=== PATIENT | female | born 1975 | race Two or more races ===

== ENCOUNTER 2019-10-24 22:15 | Emergency (ER) | payer BC ==
[2019-10-24] MEDS ORDERED: NORMAL SALINE 1000 ML 1,000 ML IV ONE (23:05)
[2019-10-24] MEDS ORDERED: ONDANSETRON HCL INJ/PF 4 MG/2 ML SDV IV ONE (23:05)
[2019-10-24] MEDS ORDERED: KETOROLAC TROMETHAMINE INJ/PF 30 MG/1 ML SDV IV ONE (23:05)
--- NOTE | 2019-10-24 23:08 | ER Document Report ---
ED Medical Screen (RME) - General Chief Complaint: Flu Symptoms Stated Complaint: FLU SYMPTOMS Time Seen by Provider: 10/24/19 23:01 Notes: Patient is a 44-year-old female presents emergency department with a chief complaint of body aches. Patient was seen by the primary care physician earlier today and although they did not test for the flu she was given Tamiflu. Patient reports her son had the flu 2 days ago and today she developed cough, body aches, nausea and generalized weakness. Denies vomiting or diarrhea. Patient did take a dose of Tylenol around 9 PM. Past Medical History - Social History Frequency of alcohol use: None Drug Abuse: None Physical Exam - Vital signs Vitals: Temp Pulse Resp BP Pulse Ox 96 F L 132 H 18 138/83 H 96 10/24/19 22:24 10/24/19 22:24 10/24/19 22:24 10/24/19 22:24 10/24/19 22:24 - Respiratory Respiratory status: No respiratory distress Chest status: Nontender Breath sounds: Normal Chest palpation: Normal Course - Re-evaluation Re-evalutation: 10/24/19 23:07 Patient febrile and tachycardic in triage. There is no hypotension. Will obtain basic labs and initiate IV fluids. Will give Toradol for her body aches and Zofran for her nausea. I have greeted and performed a rapid initial assessment of this patient. A comprehensive ED assessment and evaluation of the patient, analysis of test results and completion of the medical decision making process will be conducted by additional ED providers. - Vital Signs Vital signs: Temp Pulse Resp BP Pulse Ox 96 F L 132 H 18 138/83 H 96 10/24/19 22:24 10/24/19 22:24 10/24/19 22:24 10/24/19 22:24 10/24/19 22:24
[2019-10-25 00:53] LABS: A TYPE INFLUENZA AG NEGATIVE (NEGATIVE); B INFLUENZA AG NEGATIVE (NEGATIVE)
--- NOTE | 2019-10-25 01:43 | RADIOLOGY REPORT (SQ) ---
EXAM DESCRIPTION: XR CHEST 2 VIEWS COMPLETED DATE/TME: 10/24/2019 23:06 CLINICAL HISTORY: 44 years, Female, fever, cough COMPARISON: None. NUMBER OF VIEWS: 2 TECHNIQUE: LIMITATIONS: None. FINDINGS: Interstitial prominence. No focal airspace disease. Cardiac mediastinal silhouette is of normal size IMPRESSION: Surgical prominence. Hyperinflation. No focal airspace disease copyright 2011 [employer]- All Rights Reserved
[2019-10-25 02:39] LABS: ALBUMIN 4.1 g/dL (3.5-5.0); ALKALINE PHOSPHATASE 98 U/L (38-126); ANION GAP 9 (5-19); ASPARTATE AMINO TRANSFERASE 111 U/L (14-36); BILIRUBIN,TOTAL 0.4 mg/dL (0.2-1.3); BLOOD UREA NITROGEN 7 mg/dL (7-20); CALCIUM 8.5 mg/dL (8.4-10.2); CARBON DIOXIDE 20 mmol/L (22-30); CHLORIDE 108 mmol/L (98-107); GLUCOSE 170 mg/dL (75-110); POTASSIUM 4.2 mmol/L (3.6-5.0); TOTAL PROTEIN 7.1 g/dL (6.3-8.2)
[2019-10-25 02:42] LABS: HEMATOCRIT 41.4 % (36.0-47.0); HEMOGLOBIN 14.2 g/dL (12.0-15.5); MEAN CORPUSCULAR HEMOGLOBIN 31.3 pg (27.0-33.4); MEAN CORPUSCULAR HGB CONC 34.2 g/dL (32.0-36.0); MEAN CORPUSCULAR VOLUME 92 fl (80-97); PLATELET COUNT 225 10^3/uL (150-450); RED BLOOD COUNT 4.53 10^6/uL (3.72-5.28); RED CELL DISTRIBUTION WIDTH 13.2 % (11.5-14.0); WHITE BLOOD COUNT 9.2 10^3/uL (4.0-10.5)
[2019-10-25] MEDS ORDERED: NORMAL SALINE 1000 ML 1,000 ML IV ONE (02:43)
--- NOTE | 2019-10-25 02:48 | ER Document Report ---
ED General - General Chief Complaint: Flu Symptoms Stated Complaint: FLU SYMPTOMS Time Seen by Provider: 10/24/19 23:01 Primary Care Provider: CHANNING KIDD MD [Primary Care Provider] - Follow up as needed TRAVEL OUTSIDE OF THE [place] IN LAST 30 DAYS: No - HPI Notes: 44-year-old female non-smoking patient in good general health followed by Dr. Channing Aleman presenting with 24-hour history of flulike symptoms. Cough productive of white sputum. No hemoptysis. Myalgias. Fatigue. Intermittent temperature to 101. Associated chills. Mild nausea without vomiting. No diarrhea. No recent travel or known contact with ill individuals. Pertinent prior history: Takes medication for hyperlipidemia no other chronic conditions. Prior x2 with no other surgery. - Related Data Allergies/Adverse Reactions: No Known Allergies Allergy (Unverified 10/24/19 23:07) Past Medical History - General Information source: Patient, Relative - Social History Smoking Status: Never Smoker Frequency of alcohol use: None Drug Abuse: None Family History: Reviewed & Not Pertinent Patient has suicidal ideation: No Patient has homicidal ideation: No Past Surgical History: Reports: Hx Section Review of Systems - Review of Systems Notes: Constitutional: As per HPI. HENT: Negative for sore throat. Eyes: Negative for visual changes. Cardiovascular: Negative for chest pain. Respiratory: As per HPI. Gastrointestinal: As per HPI. Genitourinary: Negative for dysuria. Musculoskeletal: Diffuse musculoskeletal pain. Skin: Negative for rash. Neurological: Negative for headaches, weakness or numbness. 10 point ROS negative except as marked above and in HPI. Physical Exam - Vital signs Vitals: Temp Pulse Resp BP Pulse Ox 96 F L 132 H 18 138/83 H 96 10/24/19 22:24 10/24/19 22:24 10/24/19 22:24 10/24/19 22:24 10/24/19 22:24 - Notes Notes: GENERAL: Female patient approximately stated age appearing moderately uncomfortable. SKIN: Good turgor no rashes. HEAD: Normocephalic atraumatic. EYES: PERRLA. EOMI. Conjunctivae bilaterally injected. EARS: CANALS AND TMS CLEAR. NOSE: CLEAR. MOUTH: Moist mucosa. Good dentition. No stridor or edema. No drooling. NECK: Supple. No masses or thyromegaly. No adenopathy. Carotids 2+ without bruits. No JVD. BACK: Symmetrical without tenderness. CHEST: Respirations unlabored. Scattered rhonchi bilaterally with breath sounds symmetrical. HEART: Regular rhythm. No murmur gallop or rub. ABDOMEN: Soft nontender without masses, organomegaly or rebound. Bowel sounds normally active. No bruits. GENITALIA: Deferred. EXTREMITIES: No edema. No calf tenderness. Cap refill less than 1.5 seconds. Dorsalis pedis and posterior tibial pulses 3+ and symmetrical. NEUROLOGICAL: GCS 15. Alert and oriented x3. Fluent speech. Cranial nerves II through XII intact. Sensorimotor and cerebellar normal. Normal tone. PSYCHIATRIC: Appropriate affect. Course - Re-evaluation Re-evalutation: 10/25/19 02:48 Influenza a and B screen negative. Review of the chest x-ray shows interstitial prominence suggestive of an early interstitial pneumonitis. IV normal saline. IV Toradol. IV Zofran. IV azithromycin. 10/25/19 03:42 Comprehensive metabolic profile and CBC unremarkable. Patient is feeling better and appears stable for discharge. - Vital Signs Vital signs: Temp Pulse Resp BP Pulse Ox 98.2 F 96 16 106/68 100 10/25/19 04:16 10/25/19 04:16 10/25/19 04:16 10/25/19 04:16 10/25/19 04:16 - Laboratory Result Diagrams: 10/25/19 02:07 10/25/19 02:07 Laboratory results interpreted by me: 10/25/19 10/25/19 02:07 02:07 Seg Neuts % (Manual) 84 H Band Neutrophils % 2 L Lymphocytes % (Manual) 8 L Chloride 108 H Carbon Dioxide 20 L Creatinine 0.51 L Glucose 170 H AST 111 H - Diagnostic Test Radiology reviewed: Reports reviewed Radiology results interpreted by me: 10/25/19 02:48 Mild interstitial prominence bilaterally per radiologist. Discharge - Discharge Clinical Impression: Acute interstitial pneumonitis Condition: Stable Disposition: HOME, SELF-CARE Additional Instructions: Increase oral fluids. Follow-up with your physician within 2 to 3 days. Return here as needed for new or worsening symptoms: Increasing shortness of breath Pain that is worsening or unimproved Uncontrolled vomiting High fever or shaking chills Overall worsening Prescriptions: Acetaminophen with Codeine [Tylenol with Codeine #3 Tablet] 2 each PO Q6HP PRN 5 Days #20 tablet PRN Reason: Azithromycin 250 mg PO ASDIR PRN #6 tablet PRN Reason: Forms: Return to Work Referrals: CHANNING KIDD MD [Primary Care Provider] - Follow up as needed
[2019-10-25] MEDS ORDERED: AZITHROMYCIN INJ 500 MG VIAL IV ONE (02:54)
[2019-10-25] MEDS ORDERED: AZITHROMYCIN 500 MG in DEXTROSE 5%-WATER 250 ML IV SCH (03:00)
[2019-10-25 03:13] LABS: ABSOLUTE MONOCYTES # (MANUAL) 0.3 10^3/uL (0.1-1.4); BAND NEUTROPHILS % (MANUAL) 2 % (3-5); BASOPHILS % (MANUAL) 0 % (0-2); EOSINOPHILS % (MANUAL) 0 % (0-6); LYMPHOCYTES % (MANUAL) 8 % (13-45); MONOCYTES % (MANUAL) 3 % (3-13); SEGMENTED NEUTROPHILS % (MAN) 84 % (42-78); TOTAL CELLS COUNTED 100; TOXIC VACUOLATION PRESENT
[2019-10-25 03:15] LABS: PLATELET COMMENT ADEQUATE
[2019-10-25 04:17] VITALS: BP 106/68
== END 2019-10-25 04:17 | disposition home or self-care (01) ==
LOC: ER 22:15
DX: J84.114 Acute interstitial pneumonitis (principal); R05 Cough; M79.10 Myalgia, unspecified site; R53.83 Other fatigue; R68.83 Chills (without fever); R11.0 Nausea; E78.5 Hyperlipidemia, unspecified; Z79.899 Other long term (current) drug therapy
CPT/HCPCS: 99283; 96361; 96375; 96365; 36415; 85025; 80053; 87804; 71046; J1885; J2405; J7060; J7030 ×2; J0456